=== PATIENT | male | born 1950 | race Caucasian/White ===

== ENCOUNTER 2017-06-22 22:32 | Emergency (ER) | payer OTHER ==
[2017-06-22 22:39] VITALS: RESP 16; TEMP 98.2
--- NOTE | 2017-06-22 22:48 | CPEKG ---
Heart Rate: 78 RR Interval: 769 P-R Interval: 188 QRSD Interval: 96 QT Interval: 352 QTC Interval: 401 P Corning: 39 QRS Corning: 1 EKG Severity - BORDERLINE ECG - EKG Impression: SINUS RHYTHM EKG Impression: BORDERLINE T ABNORMALITIES, ANT-LAT LEADS Electronically Signed By: Darrius Diego 23-Jun-2017 03:11:18
[2017-06-22] MEDS ORDERED: ASPIRIN 81 MG CHEWABLE TAB ONE (22:56)
[2017-06-22] MEDS ORDERED: ASPIRIN 81 MG CHEWABLE TAB PO ONE (22:57)
--- NOTE | 2017-06-22 22:57 | EDPHY ---
H & P Stated Complaint: c/o mid sternal cp throughout day, no other sx Time Seen by Provider: 06/22/17 22:41 HPI/ROS: Chief Complaint: Chest pain HPI: 66-year-old male with no significant risk factors for coronary artery disease is presenting with a 3/10 chest tightness in his left chest for the last several hours. Patient actually states he felt a little bit of discomfort earlier today but got worse during dinner this evening. He does not have a history of similar episodes in the past. No recent fevers or chills. No cough. No shortness of breath. He did do several call meters on the elliptical today without any difficulty. There are no aggravating or alleviating factors. Is not exertional. No recent travel. No leg pain or swelling. No cough. Patient states that while this was happening he was feeling skipped beats every 4th beat which is the primary reason he is presenting for evaluation. ROS: 10 point Review of Systems is negative except as noted in the HPI. PMH: Hypothyroidism Social History: No smoking, rare alcohol, no recreational drug use Family History: No family history of coronary artery disease, both parents of cancer Physical Exam: Gen: Awake, Alert, No Distress HEENT: Nose: no rhinorrhea Eyes: PERRLA, EOMI Mouth: Moist mucosa Neck: Supple, no JVD Chest: nontender, lungs clear to auscultation Heart: S1, S2 normal, no murmur Abd: Soft, non-tender, no guarding Back: no CVA tenderness, no midline tenderness Ext: no edema, non-tender Skin: no rash Neuro: CN II-XII intact, Sensation grossly intact, Strength 5/5 in bilateral upper and lower extremities - Medical/Surgical History Hx Asthma: No Hx Chronic Respiratory Disease: No Hx Diabetes: No Hx Cardiac Disease: No Hx Renal Disease: No Hx Cirrhosis: No Hx Alcoholism: No Hx HIV/AIDS: No Hx Splenectomy or Spleen Trauma: No Other PMH: hypothyroid, hernia repair, bilat eye surg, cardiac cath - Social History Smoking Status: Former smoker Constitutional: Initial Vital Signs Temperature (C) 36.8 C 06/22/17 22:34 Heart Rate 68 06/22/17 22:34 Respiratory Rate 16 06/22/17 22:34 Blood Pressure 147/78 H 06/22/17 22:34 O2 Sat (%) 93 06/22/17 22:34 O2 Delivery Mode Room Air Allergies/Adverse Reactions: No Known Allergies Allergy (Unverified 06/22/17 22:38) Home Medications: Medication Instructions Recorded Levothyroxine 06/22/17 Medical Decision Making - Diagnostics EKG Interpretation: ECG time 07/16/2045, sinus rhythm with a rate of 78, normal axis, normal intervals, patient has flattened T-waves in the anterolateral leads without inversions. No acute ST or T-wave changes. Imaging Results: Imaging Impressions Chest X-Ray 06/22/17 22:50 Impression: Normal chest x-ray. Imaging: I viewed and interpreted images myself ED Course/Re-evaluation: 66-year-old male with atypical chest pain and palpitations. He has a normal ECG. Normal troponin. He has had some chest discomfort core the course of the day. No evidence of acute coronary syndrome at this time. There is no ectopy. Troponin is negative. Will discharge with follow-up with his primary care physician and Cardiology as an outpatient. No findings suggestive of acute coronary syndrome or PE at this time. - Data Points Laboratory Results: Laboratory Results 06/22/17 22:45 06/22/17 22:45 06/22/17 06/22/17 22:45 22:45 WBC 6.56 10^3/uL 10^3/uL (3.80-9.50) RBC 4.55 10^6/uL 10^6/uL (4.40-6.38) Hgb 14.6 g/dL g/dL (13.7-17.5) Hct 41.5 % % (40.0-51.0) MCV 91.2 fL fL (81.5-99.8) MCH 32.1 pg pg (27.9-34.1) MCHC 35.2 g/dL g/dL (32.4-36.7) RDW 13.5 % % (11.5-15.2) Plt Count 177 10^3/uL 10^3/uL (150-400) MPV 10.1 fL fL (8.7-11.7) Neut % (Auto) 67.2 % % (39.3-74.2) Lymph % (Auto) 25.5 % % (15.0-45.0) Clark % (Auto) 5.2 % % (4.5-13.0) Eos % (Auto) 1.2 % % (0.6-7.6) Baso % (Auto) 0.6 % % (0.3-1.7) Nucleat RBC Rel Count 0.0 % % (0.0-0.2) Absolute Neuts (auto) 4.41 10^3/uL 10^3/uL (1.70-6.50) Absolute Lymphs (auto) 1.67 10^3/uL 10^3/uL (1.00-3.00) Absolute Monos (auto) 0.34 10^3/uL 10^3/uL (0.30-0.80) Absolute Eos (auto) 0.08 10^3/uL 10^3/uL (0.03-0.40) Absolute Basos (auto) 0.04 10^3/uL 10^3/uL (0.02-0.10) Absolute Nucleated RBC 0.00 10^3/uL 10^3/uL (0-0.01) Immature Gran % 0.3 % % (0.0-1.1) Immature Gran # 0.02 10^3/uL 10^3/uL (0.00-0.10) Sodium 140 mEq/L mEq/L (135-145) Potassium 3.9 mEq/L mEq/L (3.5-5.2) Chloride 106 mEq/L mEq/L (97-110) Carbon Dioxide 22 mEq/l mEq/l (22-31) Anion Gap 12 mEq/L mEq/L (8-16) BUN 19 mg/dL mg/dL (7-23) Creatinine 1.3 mg/dL mg/dL (0.7-1.3) Estimated GFR 55 Glucose 114 mg/dL H mg/dL (70-100) Calcium 9.7 mg/dL mg/dL (8.5-10.4) Troponin I < 0.012 ng/mL ng/mL (0.000-0.034) Medications Given: Discontinued Medications Aspirin (Aspirin) 324 mg PO EDNOW ONE Stop: 06/22/17 22:58 Last Admin: 06/22/17 22:58 Dose: 324 mg Departure - Departure Disposition: Home, Routine, Self-Care Clinical Impression: Chest pain, Palpitations Condition: Good Instructions: Chest Pain (ED), Heart Palpitations (ED) Additional Instructions: Follow up with your primary care physician and roller maker in 2-3 days for further evaluation. Return to the emergency department for worsening chest pain, shortness of breath , lightheadedness, fainting, or any other concerns. Referrals: [facility] [Other] - As per Instructions
[2017-06-22 23:05] LABS: PLATELET COUNT 177 10^3/uL (150-400)
[2017-06-23] MEDS ORDERED: MAG HYDROX/AL HYDROX/SIMETH 30 ML UDCUP PO ONE (00:02)
[2017-06-23 00:03] VITALS: BP 111/71; PULSE 67; O2SAT 92
[2017-06-23] MEDS ORDERED: MAG HYDROX/AL HYDROX/SIMETH 30 ML UDCUP ONE (00:08)
== END 2017-06-23 00:25 | disposition home or self-care (01) ==
DX: R07.9 Chest pain, unspecified (principal); R00.2 Palpitations; Z87.891 Personal history of nicotine dependence